=== PATIENT | female | born 1970 | race Caucasian/White ===

== ENCOUNTER 2017-01-06 16:11 | Emergency (ER) | payer BC ==
[~2017-01-06] VITALS: Ht 160 cm; Wt 70.0 kg
[2017-01-06] MEDS ORDERED: PREDNISONE20 MG PO (18:09)
[2017-01-06] MEDS ORDERED: MOTRIN800 MG PO (18:09)
[2017-01-06] MEDS ORDERED: VENTOLIN HFA18 GM IH (18:09)
[2017-01-06] MEDS ORDERED: FIORICET 50-301 EACH PO (18:35)
[2017-01-06 19:53] VITALS: BP 117/75
== END 2017-01-06 19:58 | disposition home or self-care (01) ==
LOC: EME 16:11
DX: J11.1 Influenza due to unidentified influenza virus with other respiratory manifestations (principal); J20.8 Acute bronchitis due to other specified organisms; R51 Headache
CPT/HCPCS: 71020; 81003; 94640; 99281; 99285; J1885; J2930; J7030